=== PATIENT | female | born 1970 | race Caucasian/White ===

== ENCOUNTER 2018-06-02 07:48 | Emergency (ER) | payer OTHER ==
[~2018-06-02] VITALS: Ht 165.1 cm; Wt 57.7 kg
[2018-06-02 09:17] LABS: HEMOGLOBIN 13.8 G/DL (11.9-15.5); MCH 30.8 PG (29.0-34.0); MCHC 33.7 G/DL (30.0-36.0); MCV 91.5 FL (83-99); PLATELET COUNT 250 K/uL (156-360); RBC DIS.WIDTH-CV 13.3 % (11.8-14.6); RBC DIS.WIDTH-SD 44.5 % (39-53); RED BLOOD COUNT 4.48 M/uL (3.80-5.20)
[2018-06-02 09:23] LABS: APPEARANCE CLEAR ((CLEAR)); BILIRUBIN NEGATIVE; BLOOD LARGE; COLOR YELLOW ((YELLOW)); GLUCOSE (STRIP) NEGATIVE; KETONES NEGATIVE; LEUKOCYTES NEGATIVE; NITRITE NEGATIVE; PROTEIN (STRIP) NEGATIVE; UROBILINOGEN 0.2 MG/DL (0.2-1.0)
[2018-06-02 09:26] LABS: CHLORIDE 105 mEq/L (99-109)
[2018-06-02 09:27] LABS: BACTERIA NONE SEEN /HPF; EPITHELIAL CELLS RARE /HPF; MUCUS TRACE /LPF; RED BLOOD CELLS TNTC /HPF (0-5); UCUL ADDED? YES; WHITE BLOOD CELLS 0-5 /HPF (0-5)
[2018-06-02 09:27] LABS: SODIUM 139 mEq/L (136-147)
[2018-06-02 09:28] LABS: GLUCOSE 101 mg/dL (70-99)
[2018-06-02 09:32] LABS: CREATININE 0.9 mg/dL (0.6-1.3); GFR ESTIMATE (CALCULATED) > 59 mL/min/
[2018-06-02 09:33] LABS: UREA NITROGEN (BUN) 7 mg/dL (9-23)
[2018-06-02 09:40] LABS: QUANTITATIVE HCG < 4.0 MIU/ML
[2018-06-02 12:21] VITALS: BP 101/87
== END 2018-06-02 12:23 | disposition home or self-care (01) ==
LOC: EME 07:48
PROVIDERS: Nurse Practitioner Family
DX: N93.9 Abnormal uterine and vaginal bleeding, unspecified (principal)
CPT/HCPCS: 76856; 80048; 81003; 84702; 85027; 86900; 86901; 87086; 99281; 99284